=== PATIENT | male | born 1990 | race Two or more races ===

== ENCOUNTER 2021-06-26 19:43 | Emergency (ER) | payer BC, OTHER ==
[~2021-06-26] VITALS: Ht 170.2 cm; Wt 120.2 kg
[2021-06-26 21:35] LABS: Basophils # (auto) 0.1 10 ^3/uL (0-0.2); Eosinophils # (auto) 0.2 10 ^3/uL (0-0.8); Lymphocytes # (auto) 2.5 10 ^3/uL (0.4-5.4); Monocytes % (auto) 7.2 % (0.0-12.0); Neutrophils % (auto) 62.6 % (37.0-80.0); Nucleated Red Blood Cells % 0.1 %; Red Cell Distribution Width 13.3 % (11.8-14.3)
[2021-06-26 21:37] LABS: Basophils % (auto) 0.8 % (0.0-2.0); Eosinophils % (auto) 1.7 % (0.0-7.0); Hematocrit 51.5 % (36.0-46.0); Hemoglobin 17.6 g/dL (12.2-16.2); Lymphocytes % (auto) 27.7 % (10.0-50.0); Mean Corpuscular Hemoglobin 29.1 pg (28.0-32.0); Mean Corpuscular Hgb Conc. 34.1 g/dL (32.0-36.0); Mean Corpuscular Volume 85.5 fL (80.0-100.0); Monocytes # (auto) 0.6 10 ^3/uL (0-1.3); Neutrophils # (auto) 5.6 10 ^3/uL (1.6-8.6); Red Blood Cells 6.02 10^6/uL (4.0-5.20)
[2021-06-26 21:55] LABS: Albumin 4.7 g/dL (3.4-5.0); Anion Gap 5 (5-15); Blood Urea Nitrogen 19 mg/dL (7-18); Calcium 9.9 mg/dL (8.5-10.1); Carbon Dioxide 30 mmol/L (21-32); Chloride 103 mmol/L (98-107); Glucose 108 mg/dL (74-106); Potassium 4.1 mmol/L (3.5-5.1); Sodium 138 mmol/L (136-145)
[2021-06-26 22:00] LABS: Alanine Aminotransferase 102 U/L (13-56); Alkaline Phosphatase 75 U/L (45-117); Aspartate Aminotransferase 33 U/L (15-37); BUN/Creatinine Ratio 17.9; Bilirubin, Total 0.7 mg/dL (0.2-1.0); GFR African American 78 mL/min; GFR Non-African American 65 mL/min
[2021-06-27 01:00] VITALS: BP 128/80
== END 2021-06-27 01:44 | disposition home or self-care (01) ==
LOC: ER 19:47 → EDSEX 19:47 → ER 06-27 01:44
DX: J06.9 Acute upper respiratory infection, unspecified (principal); Z20.822 Contact with and (suspected) exposure to COVID-19
CPT/HCPCS: 36415; 71046; 80053; 83880; 84484; 85025; 85379; 87426; 87804; 93005

== ENCOUNTER 2024-12-07 06:34 | Day surgery (SDC) | payer BC ==
[2024-12-06 14:43] LABS: Urine Bacteria None Seen /hpf (None Seen)
[2024-12-06 14:57] LABS: Basophils # (auto) 0 10 ^3/uL (0-0.2); Basophils % (auto) 0.3 % (0.0-2.0); Eosinophils # (auto) 0.1 10 ^3/uL (0-0.8); Eosinophils % (auto) 1.4 % (0.0-7.0); Hematocrit 49.4 % (41.0-53.0); Hemoglobin 17.2 g/dL (13.5-17.5); Lymphocytes # (auto) 1.6 10 ^3/uL (0.4-5.4); Lymphocytes % (auto) 28.1 % (10.0-50.0); Mean Corpuscular Hgb Conc. 34.8 g/dL (32.0-36.0); Mean Corpuscular Volume 86.3 fL (80.0-100.0); Monocytes # (auto) 0.4 10 ^3/uL (0-1.3); Monocytes % (auto) 6.7 % (0.0-12.0); Neutrophils # (auto) 3.6 10 ^3/uL (1.6-8.6); Neutrophils % (auto) 63.5 % (37.0-80.0); Nucleated Red Blood Cells % 0.1 %; Platelet Count (auto) 265 10^3/uL (140-450); Red Blood Cells 5.73 10^6/uL (4.5-5.90); White Blood Cell 5.6 10^3/uL (4.4-10.8)
[2024-12-06 15:02] LABS: Urine Blood Negative /uL (Negative); Urine Clarity Clear (Clear); Urine Color Light-Yellow (Yellow); Urine Protein, UAD Negative (Negative); Urine Specific Gravity 1.023 (1.001-1.035); Urine Squamous Epithelial Cell None Seen /hpf (<5); Urine Urobilinogen Normal (Negative); Urine WBC 2 /HPF (0-3); Urine pH 6.5 (5.0-9.0)
[2024-12-06 15:06] LABS: INR 1.05 (0.9-1.15); Partial Thromboplastin Time 28.9 SEC (24.5-34.5); Prothrombin Time 11.1 sec (9.3-11.8)
[2024-12-06 15:23] LABS: Alanine Aminotransferase 30 U/L (7-40); Alkaline Phosphatase 68 U/L (46-116); Anion Gap 7 (5-15); Aspartate Aminotransferase 27 U/L (13-40); BUN/Creatinine Ratio 13.3 (10.0-20.0); Blood Urea Nitrogen 13 mg/dL (9-23); Calcium 10.3 mg/dL (8.7-10.4); Carbon Dioxide 29 mmol/L (20-31); Chloride 104 mmol/L (98-107); Glucose 92 mg/dL (74-106); Potassium 4.2 mmol/L (3.5-5.1); Sodium 140 mmol/L (136-145); Total Protein 7.3 g/dL (5.7-8.2)
[2024-12-06 15:24] LABS: Bilirubin, Total 0.8 mg/dL (0.2-1.0)
[2024-12-06 15:29] LABS: Albumin 5.1 g/dL (3.2-4.8)
[~2024-12-07] VITALS: Ht 170.2 cm; Wt 99.8 kg
[~2024-12-07 06:34] MED LIST: ceFAZolin 2 GM/D5W100ml 100 ML IV ONE
[2024-12-07] MEDS ORDERED: MIDAZOLAM HCL 2MG/2ML 2ml VIAL (1mg/ml) ONE (07:49)
[2024-12-07] MEDS ORDERED: fentaNYL CITRATE 100 MCG/2 ML VL ONE (07:49)
[2024-12-07] MEDS ORDERED: BACITRACIN TOP OINT 1 UD PKG TOP ONE (07:51)
--- NOTE | 2024-12-07 08:20 | DVHNC2 ---
Procedure - OPERATIVE REPORT Pre-op. Diagnosis: Male Desired Sterilization Phimosis Post-op. Diagnosis: Same as pre-op diagnosis Operation: Bilateral Vasectomy (No scalpel technique) Circumcision Anesthesia: G eneral + Lidocaine 1%/Marcaine 0.25% for penile block Indications: INDICATION: Male Desired Sterilization. PhimosisCONSENT: The indications, risks, complications, alternatives and benefits for vasectomy and circumcision were discussed with patient and family. All questions were encouraged and answered. Specific risks/complications including but not limited to infection, wound de hiscence, penile deformity/angulation and altered sensation on skin were discussed. He was aware of alternative management of hygiene and conservative management. He was competent and understands the discussion. The consent was obtained. Details of Procedure: The patient was placed supine and general anesthesia is admininstered. His genitals were shaved, prepped, and draped in t surgical standard fashion. Using sterile techniques, bilateral vasectomy was performed using a non-scalpel technique after administration of local anesthetic using 1% Lidocaine with Epi.Both Vas Deferens were identified, brought to the surface of scrotal skin through midline puncture site, grasped, doubly clipped and ligated, the edges were fulgurated. Layer of adventitial tissue is placed between the two ends of the divided vas deferens. Hemostasis was obtained and both ends of the vas were returned to their respected locations inside the scott- scrotum. The skin puncture site is left open.Dorsal penile block was performed with Lidocaine 1%/Marcaine 0.25% in standard manner. Two circumferential incisions were made proximally and distally from the coronal sulcus and the excess foreskin was excised. Hemostasis was assured and the edges were re- approximated by using 3-0 Chromic Suture in a simple interrupted fashion. Sterile dressing was then applied and patient was then awoken and moved to the recovery room in satisfactory fashion. Specimens: Bilateral Vas Segments Penile Foreskin Complications: None Findings: N/A Notes: D ISPOSITION: Patient tolerated the procedure well and was discharged home. He will be prophylactically treated with appropriate antibiotics for 5-days. He has been instructed to refrain from sexual activity for 7-days, use scrotal support, and to apply ice pack to both scott-scrotum for 36-48 hours. He is then instructed to engage in at least 20 episodes of sexual ejaculatory episodes before obtaining a sperm analysis during a course of 4-6 weeks. Once he has been confirmed to have zero sperms count, he will then be considered sterile but he is required to use contraception until such time. Patient understands and will follow-up accordingly. Surgeon: EMY Moe MD Dec 07, 2024 08:20
--- NOTE | 2024-12-07 08:21 | DVHDS2 ---
New Physician D'charge PN Admitting Diagnosis Admitting Diagnosis Phimosis and desired infertility Discharge Diagnosis Same Operations or Procedures Circumcision and vasectomy Reason(s) For Hospitalization Surgery Treatment Plan Discharge Condition of Discharge Good Disposition Home Discharge Instructions Diet: Regular Activity: Light activity Activity comment: Scrotal support and light duty x1 week Medications: Given Follow Up Care Follow Up/Referral: Sperm count in two months Two weeks for wound check Discharge Statement: "Patient was advised to return to the ER or call 911 if any headaches, dizziness, shortness of breath, chest pain, abdominal pain, bleeding, fevers, or worsening of medical condition. Patient was counseled about treatment plan, medications, possible side effects, patientverbalized understanding. All questions were answered to the best of my ability. This discharge took greater then 30 minutes in planning, reviewing documentation, counseling the patient, and discussing with other team members." EMY GONZALES MD Dec 07, 2024 08:21
[2024-12-07] MEDS ORDERED: PROPOFOL 10 MG/ML 20 ML IV ONE (08:29)
[2024-12-07] MEDS ORDERED: DexAMETHasone SOD PHOS 10MG/1ML VIAL INJ ONE (08:29)
[2024-12-07] MEDS: LIDOCAINE W/ EPINEPHRINE 1% 20ML VIAL ONE (09:22)
[2024-12-07 09:55] VITALS: PULSE 97; RESP 17; TEMP 97.1; O2SAT 93
[2024-12-07 10:05] VITALS: PULSE 85; RESP 16; O2SAT 99
[2024-12-07] MEDS ORDERED: MIDAZOLAM HCL 2MG/2ML 2ml VIAL (1mg/ml) IV PRN (10:15)
[2024-12-07] MEDS ORDERED: ONDANSETRON HCL 4 MG/2 ML VIAL IV ONE (10:15)
[2024-12-07] MEDS ORDERED: ePHEDrine SULFATE 50 MG/ML AMP IV PRN (10:15)
[2024-12-07] MEDS ORDERED: hydrALAZINE HCL 20 MG/ML VL IV PRN (10:15)
[2024-12-07] MEDS ORDERED: HYDROmorphone HCL 2 MG/ML VL/or syr IV PRN (10:15)
[2024-12-07] MEDS ORDERED: MORPHINE SULFATE 4 MG/ML SYR/VIAL IV PRN (10:15)
[2024-12-07 10:55] VITALS: BP 117/78; PULSE 74; RESP 12; O2SAT 97
== END 2024-12-07 11:05 | disposition home or self-care (01) ==
LOC: SUR 06:34
PROVIDERS: ATTEND Urology
DX: Z30.2 Encounter for sterilization (principal); N47.1 Phimosis; Z98.890 Other specified postprocedural states
CPT/HCPCS: 36415; 54161; 55250; 80053; 81001; 85025; 85610; 85730; 87086; 88305; J1100; J2250; J2704; J3010